=== PATIENT | female | born 1975 | race Caucasian/White ===

== ENCOUNTER 2021-03-04 10:26 | Emergency (ER) | payer MEDICAID, SELFPAY ==
[2021-03-04 10:26] VITALS: BP 124/80; PULSE 78; RESP 20; TEMP 36.3; BMI 32.9
[2021-03-04 10:49] VITALS: BMI 32.9
--- NOTE | 2021-03-04 11:14 | CT_ITS ---
We are attempting to reach an attending provider to discuss findings. An addendum with communication details will be sent when the communication is complete. EXAM: CT ANGIOGRAPHY HEAD AND NECK WITH INTRAVENOUS CONTRAST : 1975 CLINICAL INDICATION: headache TECHNIQUE: [place] of [place]/head and neck CT angiography protocol performed with intravenous contrast. This CT exam was performed using one or more of the following dose reduction techniques: automated exposure control, adjustment of the mA and/or kV according to patient size, and/or use of iterative reconstruction technique. This report was created using [employer] report [employer] technology. MIP reconstructed images were created and reviewed. CONTRAST: IV 100mL Isovue-370 COMPARISON: None. FINDINGS: HEAD: RIGHT ANTERIOR CEREBRAL ARTERY: Unremarkable. No significant stenosis at the visualized segments. Anterior communicating artery is present. No aneurysm. RIGHT MIDDLE CEREBRAL ARTERY: Unremarkable. No significant stenosis at the visualized segments. No aneurysm. RIGHT POSTERIOR CEREBRAL ARTERY: Unremarkable. No occlusion or significant stenosis. No aneurysm. LEFT ANTERIOR CEREBRAL ARTERY: Unremarkable. No significant stenosis at the visualized segments. No aneurysm. LEFT MIDDLE CEREBRAL ARTERY: Unremarkable. No significant stenosis at the visualized segments. No aneurysm. LEFT POSTERIOR CEREBRAL ARTERY: Unremarkable. No occlusion or significant stenosis. No aneurysm. BASILAR ARTERY: Unremarkable. No significant stenosis. No aneurysm. GREAT VESSELS OF AORTIC ARCH: Unremarkable. Normal anatomy, patent. OTHER VASCULATURE: No vascular malformation. NECK: RIGHT COMMON CAROTID ARTERY: Unremarkable. No significant stenosis. No dissection or occlusion. RIGHT INTERNAL CAROTID ARTERY: Unremarkable. No significant stenosis. No dissection or occlusion. RIGHT EXTERNAL CAROTID ARTERY: Unremarkable. No occlusion. RIGHT VERTEBRAL ARTERY: Unremarkable. No significant stenosis. No dissection or occlusion. LEFT COMMON CAROTID ARTERY: Unremarkable. No significant stenosis. No dissection or occlusion. LEFT INTERNAL CAROTID ARTERY: Unremarkable. No significant stenosis. No dissection or occlusion. LEFT EXTERNAL CAROTID ARTERY: Unremarkable. No occlusion. LEFT VERTEBRAL ARTERY: Unremarkable. No significant stenosis. No dissection or occlusion. LUNG APICES: Unremarkable as visualized. SOFT TISSUES: Unremarkable. CAROTID STENOSIS REFERENCE USING NASCET CRITERIA: % ICA stenosis = (1 - narrowest ICA diameter/diameter of distal cervical ICA) x 100. Moderate - 50-69% stenosis. Severe - 70-94% stenosis. Near occlusion - 95-99% stenosis. Occluded - 100% stenosis. CT/STROKE CTA Head AND Neck W/Con IMPRESSION: Negative CTA carotid and CTA brain. Individualized dose optimization techniques were used for this CT. at 1213 Reported and signed by: Bj Thomas MD Electronically Signed: Bj Thomas MD at 12:12 EDT Tel , Service support ,
--- NOTE | 2021-03-04 11:15 | EDS_ITS ---
HPI History of Present Illness Chief Complaint: Neuro S/Sx Detail of Chief Complaint: Sudden headache and not feeling well Informant: patient Narrative Narrative: Patient presents to the emergency department with complaint of a sudden headache that occurred last evening around 10 PM. Patient states that she was sitting on the couch when she had a very odd feeling, over her that lasted a few seconds and then had sudden onset of severe headache to the top of her head that lasted about 15 seconds. Patient states that she then really could not hear anything but it sounded like there was a freight train in her head and that lasted for about 10 minutes. Patient states that she felt like she maybe had some slurred speech and just had a hard time focusing. Patient was seen at [facility] emergency department last evening and was told that she may have an ear infection and was written for an antibiotic. Patient states that she still feels off. She denies a headache currently. She denies recent illness. She denies falls. She does have family history of an uncle that from a brain aneurysm. Prior similar symptoms: No PFSH PFSH Medical History (Updated 03/04/21 @ 13:[address] Magi Murillo, DO) HLD (hyperlipidemia) Migraines Home Medications amitriptyline 50 mg PO QHS 03/04/21 [History Last Taken Unknown] pravastatin 20 mg PO DAILY 03/04/21 [History Last Taken Unknown] Allergy/AdvReac Type Severity Reaction Status Date / Time No Known Allergies Allergy Verified 03/04/21 11:28 Surgical History (Updated 03/04/21 @ 10:51 by Roxi Hodge) History of cholecystectomy History of hysterectomy Social History Smoking Status: Current every day smoker tobacco type: cigarettes ROS ROS ED ROS Narrative Feels off Constitutional Constitutional ED: Reports systems reviewed and no addt'l complaints, except as documented; Denies body ache(s), change in weight or chills Eyes Eyes: Denies acute decrease in peripheral vision, change in vision, double vision or loss of vision ENT ENT ED: Reports none; Denies ear pain, lip swelling, loss taste/smell, neck pain, otalgia or sore throat Cardiovascular Cardiovascular: Reports none; Denies abdominal pain, chest pain with activity, leg edema, lightheadedness, palpitations, rapid heart rate or syncope Respiratory/Chest Respiratory/Chest: Reports none; Denies change in mental status, dry cough, dyspnea, hemoptysis, shortness of breath at rest or shortness of breath with exertion Gastrointestinal Gastrointestinal: Reports none; Denies abdominal pain, change in stool character, diarrhea, hematemesis, hematochezia, melena, rectal bleeding or vomiting Genitourinary Genitourinary ED: Reports none; Denies abdominal discomfort, anuria, dysuria, genital pain or polyuria Musculoskeletal Musculoskeletal: Reports none; Denies arthralgias, back pain, difficulty walking, extremity pain, muscle weakness or myalgias Integumentary Reports none; Denies abscess or rash Neurologic Neurologic: Reports none and headache(s); Denies abnormal gait, confusion, focal weakness, frequent falls, loss of vision, numbness, paresthesias, radicular p ain, vertigo or weakness Psychiatric Psychiatric: Reports systems reviewed and no addt'l complaints, except as documented and none; Denies behavioral changes, confusion, difficulty concentrating, hallucinations, suicidal ideation, tactile hallucinations or visual hallucinations Endocrine Endocrinology: Denies none, cold intolerance, excessive sweating, fatigue or heat intolerance Hematologic/Lymphatic Hematologic/Lymphatic: Reports none; Denies anemia, easy bleeding or easy bruising Allergic/Immunologic Allergic/Immunologic ED: Denies as per HPI, none, lip swelling, mouth swelling, throat swelling, tongue swelling or hives EXAM Physical Exam Const Vital Signs: 03/04/21 10:26 Temperature 97.3 F L Temperature Source Temporal Pulse Rate 78 Respiratory Rate 20 H Blood Pressure 124/80 H Blood Pressure Mean 94 Positive well nourished and well developed General Appearance ED: well developed and NAD HEENT Reports TM's clear and moist mucous membranes normocephalic and atraumatic; Negative for trauma or tenderness Tympanic Membrane ED: Yes TM's clear Eyes PERRL and EOMs intact bilaterally General Eye ED: Negative for pale conjunctiva or scleral icterus Neck no lymphadenopathy, supple and no JVD General: Negative for tenderness Chest Wall inspection of chest normal and palpation of chest normal Chest: Negative for tenderness Resp normal respiratory effort and clear to auscultation bilaterally Effort and Inspection: Negative for respiratory distress or pain with movement Auscultation: Negative for rhonchi, wheezes or diminished lung sounds Cardio regular rate, regular rhythm, S1 normal heart sound, S2 normal heart sound and no murmurs Peripheral Pulses: pulses 2+ throughout GI normal to inspection, nondistended, normoactive bowel sounds, soft to palpation, non-tender, non-distended and no masses Back/Spine no CVA tenderness and no thoracic nor lumbar tenderness Extremity normal to inspection General Extremety ED: Negative for edema General Extremity: Negative for edema Neuro oriented x3, CN's II-XII intact bilaterally, no sensory deficits noted and gait normal Neuro Narrative: Finger-nose and heel keane testing within normal limits, negative Romberg, negative for drift, fundi benign Sensorium / Orientation: awake, alert, oriented to person, oriented to place and oriented to time Motor Exam: strength 5/5 throughout and strength abnormal Psych mental status grossly normal Skin no rashes or lesions noted and no wounds MDM MDM MDM Narrative Medical decision making narrative: Etiology of patient's symptoms unclear. She is advised to follow-up with her primary care physician within next 3 to 5 days. She is to return if worsening headache, difficulty with balance or speech, or condition should worsen anyway. Lab Data Attestation: I reviewed the patient's lab results. Labs: Laboratory Results - last 24 hr 03/04/21 03/04/21 03/04/21 11:00 11:00 11:24 WBC 7.9 RBC 4.90 Hgb 14.1 Hct 42.7 MCV 87.1 MCH 28.8 MCHC 33.0 RDW Std Deviation 41.9 RDW Coeff of Cluade 13.2 Plt Count 268 MPV 9.6 Immature Gran % (Auto) 0.400 Neut % (Auto) 58.2 Lymph % (Auto) 27.3 Drew % (Auto) 10.1 H Eos % (Auto) 3.0 Baso % (Auto) 1.0 Absolute Neuts (auto) 4.6 Absolute Lymphs (auto) 2.16 Nucleated RBC % 0 Sodium 138 Potassium 3.9 Chloride 108 H Carbon Dioxide 28.0 Anion Gap 2 L BUN 16 Creatinine 0.80 Estim Creat Clear Calc 76.68 Est GFR (MDRD) Af Amer 99 Est GFR (MDRD) Non-Af 82 BUN/Creatinine Ratio 19.9 Glucose 119 H Calcium 8.7 POC Glucose 102 Radiography Diagnostic Testing: Radiology Impression Head/Neck CTA 03/04/21 11:14 IMPRESSION: Negative CTA carotid and CTA brain. Individualized dose optimization techniques were used for this CT. at 1213 Reported and signed by: Bj Thomas MD Electronically Signed: Bj Thomas MD at 12:12 EDT Tel , Service support , ADDENDUM: 03/04/21 1221 IMPRESSION: Negative CTA carotid and CTA brain. Individualized dose optimization techniques were used for this CT. at 1213 Reported and signed by: Bj Thomas MD N.B. : The above Results were Read Back by Bj Thomas MD to Magi Murillo and understanding confirmed on 03/04/2021 12:14:26 (ET). Electronically Signed: Bj Thomas MD at 12:12 EDT Tel , Service support , Discharge Plan Triage Chief Complaint: Neuro S/Sx ED Provider: Magi Murillo Dx/Rx/DC Orders Clinical Impression: Cephalalgia Instructions: ED Headache Unspecified Prescriptions: No Action amitriptyline 50 mg tablet 50 mg PO QHS RF: 0 pravastatin 20 mg tablet 20 mg PO DAILY RF: 0 Primary Care Provider: Cindy Gómez Referrals: Cindy Gómez MD [Primary Care Provider] - 3-5 Days Disposition Disposition: Home, Self Care
[2021-03-04 11:29] LABS: Absolute Lymphocyte Count 2.16 X10^3/uL (0.83-4.51); Absolute Neutrophil Count 4.6 X10^3/uL (2.0-7.7); Basophil# 0.08 X10^3/uL; Eosinophil# 0.24 X10^3/uL; Hematocrit 42.7 % (37-47); Hemoglobin 14.1 g/dL (12.0-15.0); Lymphocyte # 2.16 X10^3/ul (0.83-4.51); Lymphocyte % 27.3 % (19-41); Mean Corpuscular Hgb 28.8 pg (27.0-32.0); Mean Corpuscular Volume 87.1 fL (81-99); Mean Platelet Vol. 9.6 fl (6.2-12.0); Monocyte% 10.1 % (0-10); NRBC Flagged by Analyzer 0 % (0-5); Neutrophil # 4.61 X10^3/uL (2.7-7.7); Neutrophil % 58.2 % (47-70); Platelet Count 268 K/mm3 (150-450); RBC Distribution Width CV 13.2 % (11.6-14.6); RBC Distribution Width SD 41.9 fl (35.1-43.9); White Blood Count 7.9 K/mm3 (4.4-11.0)
[2021-03-04] MEDS: 0.9% Normal Saline 1,000 ML 150 ML IV (11:29)
[2021-03-04 11:30] LABS: Bedside Glucose 102 mg/dL (70-110)
[2021-03-04 11:34] LABS: Anion Gap 2 (5-15); BUN 16 mg/dL (7-18); BUN/Creat Ratio 19.9 RATIO (10-20); Calcium,Total 8.7 mg/dL (8.5-10.1); Chloride 108 mmol/L (98-107); EST Glomerular Filtration Rate 82 mL/min (>60); Est Glom Filt Rate - Afr Amer 99 mL/min (>60); Estimated Creatinine Clearance 76.68 ml/min; Glucose 119 mg/dL (74-106); Potassium 3.9 mmol/L (3.5-5.1); Sodium Level 138 mmol/L (136-145)
[2021-03-04 13:33] VITALS: BP 124/77; PULSE 62; RESP 15; O2SAT 98
== END 2021-03-04 13:34 | disposition home or self-care (01) ==
PROVIDERS: Emergency Provider Emergency Medicine; PCP Student in an Organized Health Care Education/Training Program
DX: R51.9 Headache, unspecified (principal); F17.210 Nicotine dependence, cigarettes, uncomplicated; E78.5 Hyperlipidemia, unspecified; Z90.49 Acquired absence of other specified parts of digestive tract; Z63.4 Disappearance and death of family member; Z79.899 Other long term (current) drug therapy
CPT/HCPCS: 70496; 70498; 80048; 82962; 85025; 96360; 96361; 99283; J7030; Q9967; A4216

== ENCOUNTER 2021-11-01 06:59 | Day surgery (SDC) | payer MEDICAID, SELFPAY ==
--- NOTE | 2021-11-01 07:32 | PCM.HP.STD ---
HPI - General HPI Narrative NOELLE HENAO, is a 46 F who presents for surgical intervention of a right ureteral calculus with bilateral flank pain, informed consent has been obtained. [facility] Medical History (Updated 11/01/21 @ 07:[address] Martha Foote MD) Anxiety Chronic bronchitis Chronic cough COPD (chronic obstructive pulmonary disease) CPAP (continuous positive airway pressure) dependence Depression Flank pain Gastric reflux History of diverticulitis History of hiatal hernia History of IBS History of steroid therapy HLD (hyperlipidemia) Kidney stones Marijuana use Migraine headache Migraines Polymyalgia rheumatica Post-menopausal Rheumatoid arthritis Sciatica Sleep apnea Smoker Thyroid disease Ureteral calculus Wears contact lenses Home Medications amitriptyline 100 mg PO QHS 03/04/21 [History Last Taken Unknown] pravastatin 20 mg PO DAILY 03/04/21 [History Last Taken Unknown] albuterol 90 mcg INHALATION PRN PRN 10/26/21 [History Last Taken Unknown] aspirin 81 mg PO DAILY 10/26/21 [History Last Taken Unknown] phenazopyridine [Pyridium] 200 mg PO TID PRN 10/26/21 [History Last Taken Unknown] spironolactone 25 mg PO DAILY 10/26/21 [History Last Taken Unknown] tiotropium bromide [Spiriva Respimat] 2 puff INHALATION BID 10/26/21 [History Last Taken 11/01/21] Allergy/AdvReac Type Severity Reaction Status Date / Time No Known Allergies Allergy Verified 11/01/21 07:34 Surgical History History of cholecystectomy History of dental surgery History of hysterectomy Hx of colonoscopy Hx of dilation and curettage Hx of surgical procedure Social History Smoking Status: Current every day smoker tobacco type: cigarettes ROS Constitutional Constitutional: Denies body ache(s), chills or fever(s) Eyes Eyes: Reports systems reviewed and no addt'l complaints, except as documented ENT HEENT: Reports systems reviewed and no addt'l complaints, except as documented Cardiovascular Cardiovascular: Denies chest pain, dizziness, dyspnea or irregular heart rhythm Respiratory/Chest Respiratory/Chest: Denies chest congestion, chest tightness, cough or inability to speak Gastrointestinal Gastrointestinal: Reports abdominal pain and nausea; Denies taste impaired or vomiting Genitourinary Genitourinary: Reports flank pain; Denies change in urinary stream, difficulty urinating or dysuria Musculoskeletal Musculoskeletal: Reports systems reviewed and no addt'l complaints, except as documented Integumentary Integumentary: Reports systems reviewed and no addt'l complaints, except as documented Neurologic Neurologic: Reports systems reviewed and no addt'l complaints, except as documented Psychiatric Psychiatric: Reports systems reviewed and no addt'l complaints, except as documented Endocrine Endocrinology: Reports systems reviewed and no addt'l complaints, except as documented Hematologic/Lymphatic Hematologic/Lymphatic: Reports systems reviewed and no addt'l complaints, except as documented Physical Exam Const alert, oriented x3 and no apparent distress HEENT normocephalic, head/scalp atraumatic, hearing grossly normal bilaterally, external ears normal and external nose normal Eyes General Eye: normal appearance of both eyes Neck supple General: trachea midline Lymph Lymphatic: no lymphedema noted Chest inspection of chest normal Chest: symmetrical chest wall rise Resp normal respiratory effort, normal air movement, no retractions and no use of accessory muscles Effort and Inspection: able to speak in complete sentences Cardio regular rate and regular rhythm GI soft to palpation, non-tender and non-distended Bladder / Kidney Exam: CVA tenderness right Extremity normal to inspection Skin no rashes or lesions noted, no wounds, skin turgor normal, no jaundice, no petechiae and no mottling Neuro oriented x3, CN's II-XII intact bilaterally and moves all extremities Psych mental status grossly normal, thought process normal, cooperative and affect normal Results Lab / Micro Data Micro: Microbiology 10/31/21 09:30 Interface Orders SARS-CoV-2 Antigen (Rapid) - Final Assessment & Plan Assessment/Plan (1) Ureteral calculus: (2) Flank pain: PLAN: Proceed with surgical intervention with cystoscopy, bilateral retrograde pyelogram, right ureteroscopy, laser lithotripsy and ureteral stent insertion. Informed consent was obtained
[2021-11-01 07:34] VITALS: BP 123/82; PULSE 74; RESP 16; TEMP 37.2; O2SAT 100; BMI 33.0
[2021-11-01] MEDS: Lactated Ringers 1,000 ML 15 ML IV (07:39)
--- NOTE | 2021-11-01 08:29 | PCM.DC ---
Discharge Instructions Diet Discharge Diet: No restrictions Activity Discharge Activity: Return to Normal Activity Dressing / Incision Call your doctor if you observe: Fever of 101 or Higher, Inability to urinate and Inability to have a bowel movement Follow Up Care Please Follow Up With: Martha Foote MD When: call office for appt Test Results: Test results from this visit will be discussed in further detail at your follow-up appointment, if applicable. Discharge Plan Admission Attending Provider: Martha Foote Primary Care Provider: Cindy Gómez Discharge Orders/Prescriptions Prescriptions: New ondansetron HCl [ondansetron HCl] 8 MG tablet 8 mg PO Q8H PRN PRN (Reason: Nausea) 7 Days Qty: 20 RF: 0 phenazopyridine [Pyridium] 200 MG tablet 200 mg PO TID PRN PRN (Reason: Bladder Spasms) 7 Days Qty: 30 RF: 0 oxycodone-acetaminophen [oxycodone-acetaminophen] 1 TABLET tablet 2 tab PO Q8H PRN PRN (Reason: Pain) 7 Days Qty: 20 RF: 0 cephalexin [cephalexin] 500 MG capsule 500 mg PO Q12 3 Days Qty: 6 RF: 0 Continued amitriptyline 50 mg tablet 100 mg PO QHS RF: 0 pravastatin 20 mg tablet 20 mg PO DAILY RF: 0 phenazopyridine [Pyridium] 200 mg Tablet 200 mg PO TID PRN (Reason: URINATION) RF: 0 spironolactone 100 mg tablet 25 mg PO DAILY RF: 0 aspirin 81 mg Tablet 81 mg PO DAILY RF: 0 albuterol 90 mcg/actuation Aerosol 90 mcg INHALATION PRN PRN (Reason: COPD) RF: 0 Spiriva Respimat 2.5 mcg/actuation mist 2 puff INHALATION BID RF: 0 Referrals / Follow Up: Cindy Gómez MD [Primary Care Provider] - Disposition Disposition (needs filled in before D/C Order can be placed): Home, Self Care
--- NOTE | 2021-11-01 08:41 | OP.PCM_ITS ---
Problems Associated Problem List Diagnoses (1) Flank pain: (2) Ureteral calculus: Report of Operation Date of Procedure: 11/01/21 Pre-Operative Diagnosis: Bilateral flank pain, right ureteral calculus Post-Operative Diagnosis: Same, passed Surgery/Procedure Performed:: Cystoscopy, bilateral retrograde pyelogram, right ureteroscopy Surgeon: Martha Foote Type of Anesthesia: General Description of Procedure: The patient is a 46-year-old female with bilateral flank pain and a right ureteral calculus identified on CT examination. She now presents for definitive surgical intervention. Informed consent was obtained. The patient was taken to the operating room and placed on the operating room table. Anesthesia monitored the head, neck, airway, IV access and vital signs throughout the case. Once anesthesia was appropriate ministered the patient was placed into dorsal lithotomy position was prepped and draped in usual sterile f ashion. The cystoscope was inserted through the urethra under direct visualization into the urinary bladder. Bladder mucosa was visualized in its entirety and found to be without evidence of erythema, ulceration, mass or foreign body. Bilateral ureteral orifices were located in the correct anatomic position in the urinary trigone. The left ureteral orifice was gently cannulated with a 8 [place] cone-tip catheter and retrograde pyelograms were performed with fluoroscopic evaluation. There were no filling defects or abnormalities of the entire left ureter and renal pelvis. The calyces were sharp. The patient's right orifice was then gently intubated and the process was repeated also revealing no evidence of obstruction, filling defect or abnormality. A 0.035 Glidewire was then passed through the right ureteral orifice into the renal pelvis followed by a second one. The flexible ureteroscope was then inserted over the second wire and easily entered into the right ureter. Direct visualization of the entire right ureter into the renal pelvis and each calyx was performed. There were no stones, mass, bleeding or other abnormality identified. At this time the ureter was directly visualized once again all the way to the orifice and the remaining Glidewire was removed without difficulty. The patient's bladder was emptied and the case was terminated. The patient was awakened and taken to the recovery room in good condition. There were no complications during this procedure. Grafts/Implants Used: None Complications None Admit VTE Documentation VTE Present on Admission: Yes VTE Mechan Device Prophylaxis: SCD's VTE Pharm Prophylaxis ordered?: No Reason prophylaxis not ordered:: Treatment Not Indicated
[2021-11-01 09:18] VITALS: BP 116/86; BP 123/82; PULSE 86; RESP 18; TEMP 35.9; O2SAT 98
[2021-11-01 09:30] VITALS: BP 119/85; BP 123/82; PULSE 94; RESP 18; O2SAT 97
[2021-11-01 09:36] VITALS: BP 120/85; BP 123/82; PULSE 87; RESP 18; TEMP 36.2; O2SAT 97
[2021-11-01 10:31] VITALS: BP 123/82; BP 129/90; PULSE 77; RESP 16; TEMP 36.7; O2SAT 98
== END 2021-11-01 10:33 | disposition home or self-care (01) ==
LOC: SDC 07:00 → AC 07:00
PROVIDERS: PCP Student in an Organized Health Care Education/Training Program; Referring Provider Urology; Visit Provider Urology
PROC: 0TJ98ZZ Inspection of Ureter, Via Natural or Artificial Opening Endoscopic (ICD-10-PCS; CPT 52352; principal; 2021-11-01 08:40)
DX: N20.1 Calculus of ureter (principal); J44.9 Chronic obstructive pulmonary disease, unspecified; E78.5 Hyperlipidemia, unspecified; F17.210 Nicotine dependence, cigarettes, uncomplicated; F12.90 Cannabis use, unspecified, uncomplicated; G47.30 Sleep apnea, unspecified; R10.9 Unspecified abdominal pain
CPT/HCPCS: 52351; 00910; 76000; 87426; C9803; J7120; J2405

== ENCOUNTER → 2021-11-09 | Outpatient (CLI) | payer MEDICAID, SELFPAY ==
--- NOTE | 2021-11-09 12:58 | US_ITS ---
STUDY: RENAL ULTRASOUND - COMPLETE REASON FOR EXAM: Female, 46 years old. KIDNEY STONES, FLANK PAIN . Recent stone removal. TECHNIQUE: Ultrasound evaluation of the kidneys was performed with real-time and static finch-scale imaging. COMPARISON: None. FINDINGS: RIGHT KIDNEY: Normal location of the right kidney, which is normal in size. The right kidney measures 10.9 cm x 4.7 cm x 4.3 cm. There is a normal cortex of the right kidney. The renal cortex measures 1.7 cm. There is no right renal mass or cyst. There is a 4 mm x 4 mm nonobstructive right intrarenal calculus. There is no right hydronephrosis. DISTAL RIGHT URETER: There is non-visualization of the distal right ureter. There is no demonstrated right ureterovesical junction calculus. There is a visualized right ureteral jet. LEFT KIDNEY: Normal location of the left kidney, which is normal in size. The left kidney measures 10.6 cm x 4.8 cm x 5.3 cm. There is a normal cortex of the left kidney. The renal cortex measures 2.0 cm. There is no left renal mass or cyst. There is a 5 mm x 4 mm nonobstructive left intrarenal calculus. There is no left hydronephrosis. DISTAL LEFT URETER: There is non-visualization of the distal left ureter. There is no demonstrated left ureterovesical junction calculus. There is a visualized left ureteral jet. BLADDER: The distended urinary bladder has a volume of 41 ml. There is a normal wall thickness of the distended urinary bladder. There is no demonstrated mass within the urinary bladder. There are no demonstrated bladder calculi. US/Kidney and Bladder IMPRESSION: Small bilateral intrarenal calculi. Electronically Signed: Nadir Simmons MD at 13:45 EDT ,
== END | disposition home or self-care (01) ==
LOC: US 12:57
PROVIDERS: PCP Student in an Organized Health Care Education/Training Program; Referring Provider Urology; Visit Provider Urology
DX: N20.0 Calculus of kidney (principal); R10.9 Unspecified abdominal pain
CPT/HCPCS: 76770

== ENCOUNTER → 2022-11-13 | Outpatient (CLI) | payer MEDICAID, SELFPAY ==
--- NOTE | 2022-11-13 09:26 | RAD_ITS ---
INDICATION: URETER CALCULUS COMPARISON: None. FINDINGS: 2 frontal views of the abdomen. Nonobstructive bowel gas pattern. No obvious free air. Pelvic phleboliths. No definite suspicious calcifications. No mass appreciated. RAD/Abdomen Single View IMPRESSION: Unremarkable abdomen. Electronically Signed: Isidro Crespo MD at 2:28 EDT ,
[2022-11-13 13:09] LABS: Calcium,Total 9.5 mg/dL (8.5-10.1)
== END | disposition home or self-care (01) ==
PROVIDERS: PCP Student in an Organized Health Care Education/Training Program; Referring Provider Urology; Visit Provider Urology
DX: N20.1 Calculus of ureter (principal); R82.994 Hypercalciuria
CPT/HCPCS: 36415; 74018; 82310